=== PATIENT | male | born 1990 | race Caucasian/White ===

== ENCOUNTER 2017-06-02 01:17 | Emergency (ER) | payer MEDICAID ==
[~2017-06-02] VITALS: Ht 177.8 cm; Wt 93.4 kg
--- NOTE | 2017-06-02 02:17 | NUR ---
PT AMBULATORY TO ER BED 12. PT BIB SELF C/O NOT BEING ABLE TO SLEEP X 4 DAYS AND PANIC ATTACKS. PT PLACED ON B[employer]. VSS/RESP EVEN UNLABORED/NAD NOTED/AFEBRILE/SKIN WARM AND DRY/DENIES N-V-D/AOX4. AWAITING MD BARBOZA.
[2017-06-02 02:52] VITALS: BP 112/71
--- NOTE | 2017-06-02 02:53 | NUR ---
PT LEFT W/O SIGNING D/C PAPERWORK
== END 2017-06-02 02:53 | disposition home or self-care (01) ==
LOC: ER 01:41
DX: G47.00 Insomnia, unspecified (principal)
CPT/HCPCS: 99281; A4606; Z7610; Z7502